=== PATIENT | male | born 1995 | race Caucasian/White ===

== ENCOUNTER 2016-10-24 06:37 | Emergency (ER) | payer OTHER ==
--- NOTE | ~2016-10-24 | CR72 ---
[facility] A Service of [facility] RADIOLOGY TEXT RESULTS PATIENT: TERESA BELL LOCATION: [place] : [birth year] UNIT #: [id number] AGE: [address]: Kristine Jade SEX: M ORDER DR: [id number] [address] [place], [place] [address] [id number] MR#: [id number] Acc #: [id number] NAME: TERESA BELL : 1995 SEX: M STUDY DATE/TIME: 10/24/2016 9:00 UNIT: [facility] ROOM: STUDY DESCRIPTION: CR Chest Single View Portable Attending Physician: Kristine Jade Pa-C Ordering Physician: Kristine Jade Pa-C Primary Care Physician: No Primary Care Physician MEDICAL IMAGING REPORT This report is preliminary unless electronic signature is present EXAM AP portable chest. DATE 10/24/2016 HISTORY 20-year-old male with epigastric pain. "Feels like something is stuck in his chest." Symptoms began last night. 5-year smoking history. COMPARISON PA and lateral chest radiograph, 04/27/2016. FINDINGS Clear lungs. Normal heart size. No pleural effusion or pneumothorax is seen. Pulmonary vascular distribution is within normal limits. No pleural effusion or pneumothorax is seen. No acute osseous abnormalities are identified. IMPRESSION No acute cardiopulmonary findings. Dictated by... Yahaira Cohen M.D. THIS IS AN ELECTRONICALLY VERIFIED REPORT Yahaira Cohen M.D. at 10/25/2016 7:[address] [facility]/dorian TD: 10/24/2016 12:16 JOB #: [id number] [facility] A Service of [facility] RADIOLOGY TEXT RESULTS PATIENT: TERESA BELL LOCATION: [facility] : [birth year] UNIT #: [id number] AGE: [address]: Kristine Jade SEX: M ORDER DR: MEDICAL IMAGING REPORT Page 1 of 1 COPY
[~2016-10-24 06:37] MED LIST: BENADRYL ALLERG25 MG; IBUPROFEN PO; LORTAB 5/500 TA1 TA1 PO; LORTAB 5/500 TA1 TA2 PO; NO MEDICATIONS; NORCO 5/325 TAB1 TAB PO; TOBRADEX EYE DRO5 ML OP
[2016-10-24 07:44] LABS: BASOPHIL% 0.2 % (0-2.5); EOSINOPHIL# 0.3 X10e3 (0-0.7); EOSINOPHIL% 2.3 % (0.0-7.0); HEMATOCRIT 49.9 % (38.0-50.0); HEMOGLOBIN 16.2 gm/dL (13.0-16.0); LYMPHOCYTE# 1.2 X10e3 (1.0-3.5); LYMPHOCYTE% 10.7 % (17.0-45.0); MEAN CELL VOLUME 86.1 FL (83-96); MEAN CORPUSCULAR HGB CONC 32.5 g/dL (30-36); MEAN PLATELET VOLUME 7.7 FL (6.5-11.5); MONOCYTE# 0.9 X10e3 (0-1.0); MONOCYTE% 7.7 % (3.0-12.0); NEUTROPHIL# 8.8 X10e3 (1.5-7.1); NEUTROPHIL% 79.1 % (40-75); PLATELET COUNT 257 X10e3 (140-420); RED CELL DISTRIBUTION WIDTH 13.9 % (11.0-15.5); WHITE BLOOD COUNT 11.2 X10e3 (4.0-10.5)
[2016-10-24 07:52] LABS: DIFF IND NO
[2016-10-24 08:14] LABS: ALBUMIN SERUM 4.4 g/dL (3.5-5.0); BILIRUBIN, DIRECT 0.1 mg/dL (0.0-0.2); BILIRUBIN,INDIRECT 0.6 mg/dL (0.0-0.9); BILIRUBIN,TOTAL 0.7 mg/dL (0.2-2.0); BUN/CREATININE RATIO 18.88; CREATININE SERUM 0.9 mg/dL (0.6-1.4); GLOM FILT RATE Estimated 120.8 mL/min (>60); POTASSIUM 4.2 mmol/L (3.5-5.1); PROTEIN TOTAL SERUM 6.8 g/dL (6.0-8.3)
[2016-10-24 10:09] LABS: URINE SOURCE CLEAN CATCH
[2016-10-24 10:13] LABS: URINE APPEARANCE CLEAR; URINE BILIRUBIN NEG (NEG); URINE BLOOD NEG (NEG); URINE COLOR YELLOW; URINE GLUCOSE NEG (NEG); URINE KETONE TRACE (NEG); URINE LEUKOCYTE ESTERASE NEG (NEG); URINE NITRATE NEG (NEG); URINE PH 5.5 (5-8); URINE PROTEIN NEG (NEG); URINE SPECIFIC GRAVITY 1.034 (1.003-1.035)
[2016-10-24 10:18] LABS: CULTURE INDICATED? NO
== END 2016-10-24 11:06 | disposition home or self-care (01) ==
LOC: CED 06:37
PROVIDERS: Physician Assistant Medical
DX: R10.13 Epigastric pain (principal); Z88.0 Allergy status to penicillin
CPT/HCPCS: 36415; 71010; 80048; 80076; 81003; 82150; 83690; 85025; 96361; 96374; 96375; 99284; C9113; J2405